=== PATIENT | male | born 2005 | race Caucasian/White ===

== ENCOUNTER 2024-06-19 21:17 | Emergency (ER) | payer SELFPAY ==
[2024-06-19 21:41] LABS: EOSINOPHILS ABSOLUTE AUTO 0.1 x10-3/uL (0.0-0.6); HEMOGLOBIN 15.7 g/dL (12.9-17.7); LYMPHOCYTES ABSOLUTE AUTO 2.4 x10-3/uL (0.5-4.5); MEAN CORPUSCULAR VOLUME 85.4 fL (80.8-98.7); MONOCYTES ABSOLUTE AUTO 0.8 x10-3/uL (0.0-1.2); PLATELET COUNT,PLT 268 x10(3)uL (117-477)
[2024-06-19 21:46] LABS: BASOPHILS PERCENT AUTO 0.4 % (0.3-3.8); EOSINOPHILS PERCENT AUTO 1.2 % (0.1-6.8); HEMATOCRIT 46.5 % (38.3-50.1); LYMPHOCYTES PERCENT AUTO 25.2 % (15.8-45.3); MEAN CORPUSCULAR HEMOGLOBIN 28.9 pg (27.0-33.3); MEAN CORPUSCULAR HGB CONC 33.8 g/dL (28.7-35.3); MEAN PLATELET VOLUME 9.4 fL (6.7-11.0); MONOCYTES PERCENT AUTO 8.7 % (5.5-15.2); NEUTROPHILS PERCENT AUTO 64.5 % (40.3-71.8); RED BLOOD CELL COUNT 5.44 x10(6)uL (3.90-5.90); RED CELL DISTRIBUTION WIDTH 13.5 % (12.4-15.0); WHITE BLOOD CELL COUNT,WBC 9.4 x10-3/uL (3.2-10.1)
[2024-06-19 21:57] LABS: BLOOD UREA NITROGEN,BUN 7 mg/dL (7-18); CALCIUM 9.2 mg/dL (8.2-10.1); CARBON DIOXIDE,CO2 33 mmol/L (21-32); CHLORIDE,CL 104 mmol/L (100-110); ESTIMATED GFR 111 mL/min (>60); ETHANOL BLOOD MEDICAL < 0.03 % (<0.03); GLUCOSE RANDOM 88 mg/dL (80-116); POTASSIUM,K 3.6 mmol/L (3.5-5.3); SODIUM,NA 141 mmol/L (135-145); TSH ULTRASENSITIVE 1.15 IU/mL (0.52-4.13)
[2024-06-19 22:02] LABS: A/G RATIO 1.3; ALANINE AMINOTRANSFERASE,ALT 15 U/L (12-36); ALKALINE PHOSPHATASE 51 IU/L (56-112); ASPARTATE AMNIOTRANSFERASE,AST 16 IU/L (5-25); BILIRUBIN TOTAL 0.5 mg/dL (0.1-1.2); PROTEIN TOTAL,TP 7.1 g/dL (6.0-8.0); SALICYLATE 0.7 mg/dL (<2.8)
[2024-06-19 22:03] LABS: ACETAMINOPHEN < 2 ug/mL (<2)
[2024-06-19 22:14] LABS: AMPHETAMINES SCREEN, URINE NEGATIVE (NEGATIVE); BARBITURATE SCREEN,URINE NEGATIVE (NEGATIVE); BENZODIAZEPINES SCREEN,URINE NEGATIVE (NEGATIVE); BUPRENORPHINE SCREEN,URINE NEGATIVE (NEGATIVE); METHADONE SCREEN, URINE NEGATIVE (NEGATIVE); METHAMPHETAMINE SCREEN, URINE NEGATIVE (NEGATIVE); OXYCODONE SCREEN,URINE NEGATIVE (NEGATIVE); THC SCREEN,URINE POSITIVE (NEGATIVE)
[2024-06-24 06:31] LABS: THYROXINE FREE 1.2 ng/dL (0.9-1.6)
== END 2024-06-20 13:20 ==
LOC: FB.ED 21:17
DX: S41.112A Laceration without foreign body of left upper arm, initial encounter (principal); T45.0X2A Poisoning by antiallergic and antiemetic drugs, intentional self-harm, initial encounter; F41.1 Generalized anxiety disorder; F32.A Depression, unspecified; Z79.899 Other long term (current) drug therapy; X78.8XXA Intentional self-harm by other sharp object, initial encounter
CPT/HCPCS: 36415; 80053; 80143; 80179; 80307; 84439; 84443; 84484; 85025; 87426-QW; 93005; 99285

== ENCOUNTER 2024-08-05 22:57 | Emergency (ER) | payer OTHER | END 2024-08-05 23:27 | disposition home or self-care (01) | LOC: FB.ED 22:57 | DX: Z02.89 Encounter for other administrative examinations (principal); F17.200 Nicotine dependence, unspecified, uncomplicated; Z79.899 Other long term (current) drug therapy | CPT/HCPCS: 99282; 99283 ==